=== PATIENT | female | born 2005 | race African-American/Black ===

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

== ENCOUNTER 2024-03-18 10:08 | Observation (INO) | payer OTHER, SELFPAY ==
[2024-03-18] VITALS (14 sets, daily range): BP systolic 92–126; BP diastolic 50–88; PULSE 65–96; RESP 14–18; TEMP 36.1–37.1; O2SAT 94–100; BMI 33.6; BMI 33.3
--- NOTE | 2024-03-18 10:18 | ED.VIS.FEGU ---
HPI HPI - Female History of Present Illness Chief Complaint: Vag Bleeding Detail of Chief Complaint: Heavy vaginal bleeding since 99 Informant: patient Pain Pain: Positive for Pelvic Pain Onset: Today Context: Sudden Onset Timing: Continuous and Waxes and wanes Quality: Positive for Cramping and Aching Location: RLQ and LLQ Current Severity: Mild Maximum Severity: Moderate Worsened by: - (Nothing specific) Relieved by: - (Nothing) Bleeding Issue: Positive for Vaginal bleeding and Passing clots; Negative for Passing tissue Onset: Month(s) (Had vaginal bleeding for 1 to 2 years worse since 99) Timing: Continuous Current Severity: Heavy (States she is passing golf ball size clots) Current pads/hr: 1 Maximum Severity: Heavy Associated Symptoms Associated Symptoms: Positive for Irregular Period; Negative for Dysuria, Frequency, Urgency, Hematuria or Missed Period Sexually: Positive for Inactive; Negative for Active Control: No control Narrative Narrative: Patient is a 18-year-old female who states she has had vaginal bleeding for 2 weeks. She states she is not sexually active. She does have history of polycystic ovarian syndrome. She does not have a qm nurse and has not seen a qm nurse in over a year. She states 010 she started having heavy vaginal bleeding. She is gone through 12 pads since 1 AM. She is states she is passing golf size clots as well. She denies urologic symptoms. She denies breast tenderness. Denies nausea or vomiting. She is presently on psychiatric meds. She does endorse orthostatic symptoms. Mother states she appears pale. Prior similar symptoms: No Recent Illness/Hospitalization: [facility] Medical History (Updated 03/18/24 @ 13:[address] Eagle Zhong MD) Polycystic ovarian disease Encounter for screening for COVID-19 Depression Home Medications ?Medication ?Instructions ?Recorded ?Last Taken ?Type norgestrel 0.3 mg-ethinyl 1 tab PO DAILY 06/29/19 Unknown History estradiol 30 mcg tablet sertraline 100 mg tablet 100 mg PO DAILY 06/29/19 Unknown History sertraline 25 mg tablet 25 mg PO DAILY 06/29/19 Unknown History azithromycin 250 mg tablet See Rx Instructions PO .COMPLEX #6 05/23/22 Unknown Rx tabs Allergy/AdvReac Type Severity Reaction Status Date / Time cefdinir (From Omnicef) Allergy Mild hives Verified 03/18/24 10:10 penicillin V Allergy Mild swelling Verified 03/18/24 10:10 in hands and red dots of feet hydrocodone Allergy HIVES Verified 03/18/24 10:10 Family History Mother Rheumatoid arthritis Other Cancer Surgical History no surgical history no surgical history Social History Smoking Status: Never smoker ROS ROS ED Constitutional Constitutional ED: Denies chills, fever(s), subjective or sweats Cardiovascular Cardiovascular: Denies chest pain or palpitations Respiratory/Chest Respiratory/Chest: Denies cough, dyspnea or dyspnea on exertion Gastrointestinal Gastrointestinal: Reports abdominal pain; Denies constipation, diarrhea, melena, nausea or vomiting Genitourinary Genitourinary ED: Denies dysuria, hematuria, urinary frequency or other Musculoskeletal Musculoskeletal: Denies arthralgias, myalgias or neck pain Integumentary Denies rash Neurologic Neurologic: Denies headache(s) Psychiatric Psychiatric: Reports depression Hematologic/Lymphatic Hematologic/Lymphatic: Denies easy bleeding or easy bruising EXAM Physical Exam Const Vital Signs: 03/18/24 10:09 03/18/24 11:18 03/18/24 12:29 Temperature 97.3 F L Temperature Source Temporal Pulse Rate 83 96 Pulse Rate [Lying] 74 Pulse Rate [Sitting (for 1 minute prior to obtaining)] 84 Pulse Rate [Standing (for 1 minute prior to obtaining)] 92 Respiratory Rate 14 18 Blood Pressure 126/88 H 101/66 Blood Pressure [Lying] 106/65 Blood Pressure [Sitting (for 1 minute prior to obtaining)] 110/77 Blood Pressure [Standing (for 1 minute prior to obtaining)] 113/69 Blood Pressure Mean 100 77 Blood Pressure Mean [Lying] 78 Blood Pressure Mean [Sitting (for 1 minute prior to obtaining)] 88 Blood Pressure Mean [Standing (for 1 minute prior to obtaining)] 83 Pulse Ox 98 100 Oxygen Delivery Method Room Air Room Air Positive well nourished and well developed; Negative for unkempt Constitutional Narrative: Patient appears pale. She does not appear well. Her BMI is 33.6. General Appearance ED: well developed; Negative for unkempt or odor of alcohol detected HEENT Reports moist mucous membranes HEENT Narrative: Head is atraumatic and normocephalic. Ears normal. Nares patent. Eyes PERRL and EOMs intact bilaterally General Eye ED: Yes pale conjunctiva; Negative for scleral icterus Neck no lymphadenopathy, supple and no JVD Resp normal respiratory effort and clear to auscultation bilaterally Cardio regular rate, regular rhythm, S1 normal heart sound, no murmurs and no JVD GI normal to inspection, nondistended, normoactive bowel sounds, soft to palpation, non-distended and no masses; Negative for non-tender Auscultation: hypoactive bowel sounds Palpation: tender LLQ and RLQ; Negative for rigid, hepatomegaly, splenomegaly or mass Narrative: Large clots were noted at the introitus. There was bright red blood noted in the vagina with large clots. This was evacuated. Patient is still actively bleeding. Patient's cervix is oblong and not consistent with history of no . Difficult to assess size of uterus due to pain. Patient complained of adnexal discomfort. There is no obvious mass or fullness noted on the right or left. Because of the amount of bleeding and reported history of bleeding for greater than a year will obtain ultrasound for further evaluation. Back/Spine no CVA tenderness Extremity normal to inspection and full ROM Neuro oriented x3 and CN's II-XII intact bilaterally Sensorium / Orientation: alert Psych Appearance: Negative for unkempt Mood & Affect: depressed Skin Skin Narrative: Patient appears fair skinned. MDM MDM MDM Narrative Medical decision making narrative: With patient endorsing orthostatic lightheadedness will obtain orthostatic vital signs. Clinically she looks anemic. CBC was obtained assess H&H. Serum test was obtained. Orders placed for pelvic exam. If patient is orthostatic positive we will administer liter of normal saline. Lab Data Attestation: I reviewed the patient's lab results. Lab results narrative: CBC is remarkable for an H&H of 6.7 and 25.5 with microcytic indices.Prior H&H was obtained on December 23, 2021 and was noted to be 9.3 and 30.4 with normal indices. June 2019 H&H was 13.2 and 40.9. Labs: Laboratory Results - last 24 hr 03/18/24 10:28 WBC 9.7 RBC 3.59 L Hgb 6.7 L Hct 25.5 L MCV 71.0 L MCH 18.7 L MCHC 26.3 L RDW Std Deviation 41.3 RDW Coeff of Marissa 16.2 H Plt Count 421 MPV 11.1 Immature Gran % (Auto) 0.400 Neut % (Auto) 56.4 Lymph % (Auto) 31.9 [place] % (Auto) 7.0 Eos % (Auto) 3.7 Baso % (Auto) 0.6 Absolute Neuts (auto) 5.5 Absolute Lymphs (auto) 3.08 Nucleated RBC % 0 Serum , Qual NEGATIVE Radiography Diagnostic Testing: Clinical Impression(s) from Imaging Studies Transvaginal US 03/18/24 11:33 IMPRESSION: 1. Heterogeneous endometrium with mild complex fluid which may represent blood. 2. Nabothian cysts in the cervix. 3. Otherwise unremarkable examination. Electronically Signed: Haseeb Sanchez MD at 12:33 EDT , Management Discussion w/another healthcare provider: Lan Analyst (Case discussed with Dr. Thania Manning. Patient to be admitted to her service.) Treatment and Re-Evaluation Narrative: Patient was typed and screened. Patient was made NPO. Discharge Plan Triage Chief Complaint: Vag Bleeding ED Provider: Eagle Zhong Dx/Rx/DC Orders Clinical Impression: Abnormal uterine and vaginal bleeding, unspecified, Polycystic ovarian disease, Signs and symptoms of anemia, Symptomatic anemia Prescriptions: No Action azithromycin 250 mg tablet See Rx Instructions PO .COMPLEX Qty: 6 0RF Rx Instructions: take 500 mg today (day 1), then 250 mg for 4 days (days 2-5) PO norgestrel-ethinyl estradiol 0 tablet 1 tab PO DAILY sertraline 100 MG tablet 100 mg PO DAILY sertraline 25 MG tablet 25 mg PO DAILY Primary Care Provider: Randell Bellamy Referrals: Shanda Reynolds MD [Non-Staff] - Print Language: Azeri Disposition Disposition: Acute Care [facility]
--- NOTE | 2024-03-18 10:30 | ED.RN ---
assisted to bathroom lightheaded. passed softball size clot with bleeding. bled through pad, and clothing. assisted with cleaning up and walking back to room
[2024-03-18 10:54] LABS: Absolute Lymphocyte Count 3.08 X10^3/uL (0.83-4.51); Absolute Neutrophil Count 5.5 X10^3/uL (2.0-7.7); Basophil# 0.06 X10^3/uL; Basophil% 0.6 % (0-1); Eosinophil# 0.36 X10^3/uL; Eosinophils% 3.7 % (0-5); Hematocrit 25.5 % (37-47); Hemoglobin 6.7 g/dL (12.0-15.0); Lymphocyte # 3.08 X10^3/ul (0.83-4.51); Lymphocyte % 31.9 % (19-41); Mean Corp Hgb Conc 26.3 g/dL (32-36); Mean Corpuscular Hgb 18.7 pg (27.0-32.0); Mean Platelet Vol. 11.1 fl (6.2-12.0); Monocyte# 0.68 X10^3/uL; NRBC Flagged by Analyzer 0 % (0-5); Neutrophil # 5.45 X10^3/uL (2.7-7.7); Neutrophil % 56.4 % (47-70); Platelet Count 421 K/mm3 (150-450); RBC Distribution Width CV 16.2 % (11.6-14.6); RBC Distribution Width SD 41.3 fl (35.1-43.9); Red Blood Count 3.59 M/mm3 (4.2-5.4); White Blood Count 9.7 K/mm3 (4.4-11.0)
[2024-03-18 11:18] LABS: Internal QC Validated? YES +Cl - CLEAR BKGD; Pregnancy, Serum, hCG Quali. NEGATIVE Negative
--- NOTE | 2024-03-18 11:33 | US_ITS ---
INDICATION: Vaginal bleeding with microcytic anemia EXAMINATION: Ultrasound US Transvaginal Non-OB TECHNIQUE: Transvaginal (for optimal evaluation of the adnexa) pelvic ultrasound was performed. Grayscale, spectral waveform, and color flow Doppler evaluation of the adnexa. COMPARISON: No relevant prior comparison study available FINDINGS: UTERUS: Retroflexed. The uterus measures 7.1 x 4.4 x 3.6 cm. There is no uterine mass. There is a nabothian cyst in the cervix The endometrial stripe measures 12 mm in AP diameter . Heterogeneous with complex fluid which may represent blood. RIGHT OVARY: 4.7 x 2.6 x 2.1 cm. Non-enlarged, normal echogenicity. There is normal arterial inflow and venous outflow present in the right ovary. LEFT OVARY: 4 x 3.5 x 2.6 cm. Non-enlarged, normal echogenicity. There is normal arterial inflow and venous outflow present in the left ovary. FREE FLUID: None. US/Transvaginal Non- IMPRESSION: 1. Heterogeneous endometrium with mild complex fluid which may represent blood. 2. Nabothian cysts in the cervix. 3. Otherwise unremarkable examination. Electronically Signed: Haseeb Sanchez MD at 12:33 EDT ,
--- NOTE | 2024-03-18 13:18 | NURSING ---
MED SURG OBS CHRISTOFER VAGINAL BLEEDING, ANEMIA
[2024-03-18] MEDS: Ondansetron 4 MG/2 ML Vial IV (17:18)
[2024-03-18] MEDS: 0.9% Saline Lock 10 ML Syringe IV ×4 (17:18→23:05)
[2024-03-18] MEDS: Ibuprofen 600 MG Tablet PO (17:21)
[2024-03-18] MEDS: Lactated Ringers 1,000 ML 125 ML IV (23:05)
[2024-03-19 03:13] VITALS: BP 103/46; PULSE 73; RESP 16; TEMP 36.4; O2SAT 98
[2024-03-19] MEDS: Ibuprofen 600 MG Tablet PO ×2 (03:16→17:38)
[2024-03-19 04:01] LABS: Absolute Lymphocyte Count 5.15 X10^3/uL (0.83-4.51); Absolute Neutrophil Count 7.4 X10^3/uL (2.0-7.7); Basophil# 0.06 X10^3/uL; Basophil% 0.4 % (0-1); Eosinophil# 0.45 X10^3/uL; Eosinophils% 3.2 % (0-5); Hematocrit 25.8 % (37-47); Hemoglobin 7.6 g/dL (12.0-15.0); Lymphocyte # 5.15 X10^3/ul (0.83-4.51); Mean Corp Hgb Conc 29.5 g/dL (32-36); Mean Corpuscular Hgb 22.2 pg (27.0-32.0); Mean Corpuscular Volume 75.4 fL (81-99); Mean Platelet Vol. 11.2 fl (6.2-12.0); Monocyte# 0.78 X10^3/uL; Monocyte% 5.6 % (0-10); NRBC Flagged by Analyzer 0 % (0-5); Neutrophil # 7.44 X10^3/uL (2.7-7.7); Neutrophil % 53.4 % (47-70); POSITIVE DIFFERENTIAL YES; Platelet Count 334 K/mm3 (150-450); RBC Distribution Width CV 19.5 % (11.6-14.6); RBC Distribution Width SD 52.2 fl (35.1-43.9); Red Blood Count 3.42 M/mm3 (4.2-5.4); White Blood Count 13.9 K/mm3 (4.4-11.0)
[2024-03-19 04:07] LABS: Differential Indicated SCAN CRITERIA MET
[2024-03-19 04:29] LABS: T4 Total, Thyroxin 7.9 ug/dL (4.8-13.9); Thyroid Stim Hormone (TSH) 3.39 uIU/mL (0.358-3.74)
[2024-03-19 04:43] LABS: Anisocytosis 2+
[2024-03-19 04:44] LABS: Differential Comment SCANNED; Hypochromasia 1+; Other RBC Morphology 2+; Ovalocyte 2+; Polychromasia 1+
[2024-03-19] MEDS: Lactated Ringers 1,000 ML 125 ML IV ×2 (06:37→15:04)
[2024-03-19 07:08] LABS: Absolute Lymphocyte Count 4.38 X10^3/uL (0.83-4.51); Absolute Neutrophil Count 6.9 X10^3/uL (2.0-7.7); Basophil# 0.07 X10^3/uL; Basophil% 0.6 % (0-1); Eosinophil# 0.44 X10^3/uL; Eosinophils% 3.5 % (0-5); Hematocrit 24.6 % (37-47); Hemoglobin 7.5 g/dL (12.0-15.0); Lymphocyte # 4.38 X10^3/ul (0.83-4.51); Lymphocyte % 34.7 % (19-41); Mean Corp Hgb Conc 30.5 g/dL (32-36); Mean Corpuscular Hgb 22.9 pg (27.0-32.0); Mean Corpuscular Volume 75.2 fL (81-99); Mean Platelet Vol. 10.8 fl (6.2-12.0); Monocyte# 0.76 X10^3/uL; NRBC Flagged by Analyzer 0.4 % (0-5); Neutrophil # 6.93 X10^3/uL (2.7-7.7); Neutrophil % 54.9 % (47-70); Platelet Count 313 K/mm3 (150-450); RBC Distribution Width CV 19.2 % (11.6-14.6); RBC Distribution Width SD 51.9 fl (35.1-43.9); Red Blood Count 3.27 M/mm3 (4.2-5.4); White Blood Count 12.6 K/mm3 (4.4-11.0)
[2024-03-19 09:00] VITALS: PULSE 81; RESP 18; O2SAT 96
[2024-03-19 09:10] VITALS: BP 120/80; PULSE 81; RESP 18; TEMP 36.6; O2SAT 96
--- NOTE | 2024-03-19 09:35 | PCM.HP.BLA ---
History and Physical Date of Admission: 03/18/24 Presented to the ED with increased vaginal bleeding. Filling pads since sustainable design consultant hours. Passing clots. [place] lightheaded and dizzy. Has been constantly bleeding for the last 2 years. Not this heavy. Was diagnosed with PCOS and told her only option was BC. She has a hx of mental decompensation while taking OCPs. She does not want to do that again. Declined treatment. Has not had any additional work up for PCOS. TSH was 5.0 at age 13 but normal 2 years ago. US in ED with 12 mm endometrium and ovaries consistent with PCOS. Has a history of migraines usually brought on by stress. Does have aura. Currently treated with prozac with some success. Does not currently have a therapist. Discussed the nature of PCOS. Weight gain, insulin resistance, anovulation with irregular periods. Increased risk of DM, high cholesterol and endometrial hyperplasia. Needs to have screening for hyperinsulinemia, diabetes, high cholesterol and endometrial biopsy. Bleeding currently improved with aygestin and motrin. S/p 2 units PRBCs. Does feel better. Discussed treatment options of POPs, IUD, Metrformin if insulin resistant, weight loss of 10%. May need D&C if abnormal pathology on EMB. Assessment & Plan Assessment/Plan (1) Polycystic ovarian disease: PLAN: Needs fasting lipids, insulin, A1c, and EMB (2) Abnormal uterine and vaginal bleeding, unspecified: PLAN: tsh and t4 normal (3) Symptomatic anemia: PLAN: S/p 2 prbcs PLAN: Plan Continue Aygestin TID then BID and then daily until evaluation in office complete. Possible discharge if bleeding improved this evening.
[2024-03-19] MEDS: FLUoxetine 20 MG Capsule PO (09:47)
--- NOTE | 2024-03-19 11:50 | CASEMGMT ---
RN CM Face to Face with patient for initial transition planning/care coordination assessment. RN CM introduced self and role at [facility]. Patient lying in bed, alert and oriented, mother at bedside. Patient willing to participate in assessment and is able to answer all questions appropriately. Care providers, pharmacy, and demographics verified. PCP: Patient to get established [facility] Specialists: none Preferred Pharmacy: [facility] Insurance: [facility] Prescription Benefit: yes Living Will/HPOA: none LNOK: mother Living Arrangements: Patient lives with mother in a 2 story home. Patient is independent and able to ambulate stairs. Transportation: mother, friends DME/HHC: Patient denies DME in the home. No previous HHC or SNF Patient wishes to discharge home, denies need for home health at this time. Patient states he has no further needs or concerns at this time. CM to follow for discharge planning needs that may arise. Disposition Plan: Patient to discharge home with family support and follow-up plans in place. Josey RANDOLPH, RN, CM
[2024-03-19 14:23] VITALS: PULSE 75; O2SAT 98
[2024-03-19 15:05] VITALS: BP 129/60; PULSE 65; RESP 18; TEMP 36.6; O2SAT 100
--- NOTE | 2024-03-19 17:07 | PCM.PN.OB ---
Subjective Subjective Bleeding minimal now. Still feeling a bit lightheaded. Tolerating PO well. Discussed IV iron and possible D/C in am on Aygestin. Objective Data Objective Data Vital Signs: Vital Signs Temp Pulse Resp BP Pulse Ox O2 Del Method 98 F 65 18 129/60 H 100 Room Air 03/19/24 15:05 03/19/24 15:05 03/19/24 15:05 03/19/24 15:05 03/19/24 15:05 03/19/24 15:05 Oxygen Delivery Method Room Air Weight: 93.485 kg Body Mass Index (BMI) 33.3 Intake & Output: Intake and Output for Last 24 Hours 03/17/24 03/18/24 03/19/24 23:59 23:59 23:59 Intake Total 302 / 302 2491.67 / 2491.67 Balance 302 / 302 2491.67 / 2491.67 Lab / Micro Data 03/19/24 06:58 Labs: Laboratory Results - last 24 hr 03/18/24 13:24: Crossmatch See Detail 03/19/24 03:41: WBC 13.9 H, RBC 3.42 L, Hgb 7.6 L, Hct 25.8 L, MCV 75.4 L D, MCH 22.2 L, MCHC 29.5 L D, RDW Std Deviation 52.2 H, RDW Coeff of Marissa 19.5 H, Plt Count 334, MPV 11.2, Immature Gran % (Auto) 0.400, Neut % (Auto) 53.4, Lymph % (Auto) 37.0, [place] % (Auto) 5.6, Eos % (Auto) 3.2, Baso % (Auto) 0.4, Absolute Neuts (auto) 7.4, Absolute Lymphs (auto) 5.15 H, Nucleated RBC % 0, Differential Comment SCANNED, RBC Morphology 2+, Polychromasia 1+, Hypochromasia 1+, Anisocytosis 2+, Ovalocytes 2+, TSH 3.39, Thyroxine (T4) 7.9 03/19/24 06:58: WBC 12.6 H, RBC 3.27 L, Hgb 7.5 L, Hct 24.6 L, MCV 75.2 L, MCH 22.9 L, MCHC 30.5 L, RDW Std Deviation 51.9 H, RDW Coeff of Marissa 19.2 H, Plt Count 313, MPV 10.8, Immature Gran % (Auto) 0.300, Neut % (Auto) 54.9, Lymph % (Auto) 34.7, [place] % (Auto) 6.0, Eos % (Auto) 3.5, Baso % (Auto) 0.6, Absolute Neuts (auto) 6.9, Absolute Lymphs (auto) 4.38, Nucleated RBC % 0.4 Assessment & Plan (1) Symptomatic anemia: (2) Abnormal uterine and vaginal bleeding, unspecified: (3) Polycystic ovarian disease:
[2024-03-19] MEDS: Sodium Ferric Gluconat/Sucrose 250 MG in 0.9% Normal Saline (250mL Bag) 250 ML 135 MG IV (17:33)
--- NOTE | 2024-03-19 18:48 | NURSING ---
This RN went to see IV site as pt was complaining it was burning despite her primary RN slowed infusion down and gave a cold compress. Iv site was mildly puffy and tender. IV site taken out by Karlene BOWERS. Pt refusing to get another IV. Do I have to get poked again. PT getting tearful as she is a hard stick. This RN informed pt that she does not have to do anything she does not want to do but explained the importance of having the infusion. Pt also informed that she could get it orally. But that will make me throw up. Waiting assistant operations manager back for Dr. Manning to inform her that pt refusing her iron infusion.
[2024-03-19] MEDS: DiphenhydrAMINE 25 MG Capsule PO (19:00)
[2024-03-19 20:08] VITALS: BP 106/60; PULSE 79; RESP 16; TEMP 36.8; O2SAT 100
--- NOTE | 2024-03-19 23:22 | NURSING ---
2114 Pt refused IV Iron due to previous burning sensation when medication was first given. This nurse provided education on the benefits of pt getting IV Iron and some measures that can be done to help with the discomfort. After this nurse prompted for more information, pt stated she got swelling in addition to the burning sensation with warmth and felt it was best to not get IV Iron infusion. Pt was provided education on eating iron-rich foods within her diet and was given some examples of foods containing high iron content.
[2024-03-20 02:29] VITALS: BP 109/61; PULSE 74; RESP 16; TEMP 36.9; O2SAT 100
[2024-03-20 08:30] VITALS: BP 100/60; PULSE 69; RESP 15; TEMP 36.6; O2SAT 100
--- NOTE | 2024-03-20 09:47 | PCM.PN.OB ---
Subjective Subjective Scant bleeding. Ambulating without difficulty. Refused to continue IV iron. Reviewed need for further out patient workup and treatment for bleeding. IUD seems to be her choice at this time. Will continue with Aygestin until placement. Objective Data Objective Data Vital Signs: Vital Signs Temp Pulse Resp BP Pulse Ox O2 Del Method 98.5 F 74 16 109/61 100 Room Air 03/20/24 02:29 03/20/24 02:29 03/20/24 02:29 03/20/24 02:29 03/20/24 02:29 03/20/24 02:29 Oxygen Delivery Method Room Air Weight: 93.485 kg Body Mass Index (BMI) 33.3 Intake & Output: Intake and Output for Last 24 Hours 03/18/24 03/19/24 03/20/24 23:59 23:59 23:59 Intake Total 302 / 302 4042.42 / 4042.42 400 / 400 Balance 302 / 302 4042.42 / 4042.42 400 / 400 Lab / Micro Data 03/19/24 06:58 ROS Constitutional Constitutional: Reports fatigue Cardiovascular Cardiovascular: Denies chest pain or dyspnea Respiratory/Chest Respiratory/Chest: Denies dyspnea on exertion Gastrointestinal Gastrointestinal: Denies abdominal pain Musculoskeletal Musculoskeletal: Reports none Neurologic Neurologic: Reports none Psychiatric Psychiatric: Reports none Physical Exam Const alert, oriented x3 and no apparent distress General Appearance: cooperative and comfortable HEENT normocephalic and head/scalp atraumatic Eyes PERRL and EOMs intact bilaterally Neck full ROM Resp normal respiratory effort GI soft to palpation and non-tender Extremity normal to inspection Skin no rashes or lesions noted Neuro oriented x3 and CN's II-XII intact bilaterally Psych mental status grossly normal Assessment & Plan (1) Symptomatic anemia: (2) Abnormal uterine and vaginal bleeding, unspecified: PLAN: Plan Discharge home. Follow up in office. Continue Aygestin BID for 3 days and then daily.
[2024-03-20] MEDS: FLUoxetine 20 MG Capsule PO (09:48)
[2024-03-20] MEDS: Acetaminophen 500 MG Tablet 1000 MG PO (09:48)
--- NOTE | 2024-03-20 10:05 | PCM.DC.SUM ---
Providers Date of Admission: 03/18/24 Date of Discharge: 03/20/24 Primary Care Physician: Dr. Randell Bellamy MD Reason For Visit: VAGINAL BLEEDING Diagnosis Discharge Diagnosis (1) Symptomatic anemia: Status: Acute Code(s): D64.9 - Anemia, unspecified (2) Abnormal uterine and vaginal bleeding, unspecified: Status: Acute Code(s): N93.9 - Abnormal uterine and vaginal bleeding, unspecified Plan Discharge home. Follow up in office. Continue Aygestin BID for 3 days and then daily. Medications at Discharge Home Medications fluoxetine 20 mg capsule (Prozac) 20 mg PO DAILY 03/18/24 norethindrone acetate 5 mg tablet (Aygestin) See Rx Instructions .Route .COMPLEX #30 tabs 03/20/24 Hospital Course Operations None Procedures None Summary of Care Provided Minutes Spent on Discharge: 21 Hospital Course: Admitted through ED with significant increase in vaginal bleeding and symptomatic anemia. Received 2 units PRBCs and oral Aygestin. Bleeding did stop. IV infiltration with IV iron. Patient refused continued infusion with new IV. Physical Exam Const alert, oriented x3 and no apparent distress General Appearance: cooperative and comfortable HEENT normocephalic and head/scalp atraumatic Eyes PERRL and EOMs intact bilaterally Neck full ROM Resp normal respiratory effort GI soft to palpation and non-tender Extremity normal to inspection Skin no rashes or lesions noted Neuro oriented x3 and CN's II-XII intact bilaterally Psych mental status grossly normal Weight / BMI Weight Weight: 93.485 kg Body Mass Index (BMI) 33.3 ABG / Lab / Microbiology Data 03/19/24 06:58 D/C Instructions Discharge Diet: No restrictions Discharge Activity: Return to Normal Activity Call your doctor if you observe: Using more than 1 pad per hour Please Follow Up With: Thania Manning MD When: 1-2 week Meaningful Use Info Meaningful Use Meaningful Use Diagnoses (Choose all that apply): None applicable Ischemic Stroke Statin Dosing Therapy Reference: STATIN DOSE THERAPY REFERENCE: * Patients > 75 years receive moderate or high dose statin therapy. * Patients 75 years or YOUNGER should receive HIGH intensity statin dose unless contraindicated. You will be required to document reason for non-treatment if statin daily dose does not meet guidelines. HIGH DOSE STATIN THERAPY DAILY Atorvastatin > than or = to 40 mg Rosuvastatin > than or = to 20 mg Amlodipine + Atorvastatin > than or = to 2.5/40 mg Ezetimibe + Simvastatin 10/80 mg Simvastatin 80mg Discharge Plan Admission Admit Date/Time: 03/18/24 14:14 Primary Reason for Your Visit: Anemia and vaginal bleeding Attending Provider: Thania Manning Primary Care Provider: Randell Bellamy Discharge Orders/Prescriptions Prescriptions: New norethindrone acetate [Aygestin] 5 mg Tablet See Rx Instructions .ROUTE .COMPLEX Qty: 30 1RF Rx Instructions: 5 mg orally BID for 3 days then daily Continued fluoxetine [Prozac] 20 mg capsule 20 mg PO DAILY Referrals / Follow Up: Thania Manning MD [Med Staff - Active Staff] - Shanda Reynolds MD [Non-Staff] - Randell Bellamy MD [Primary Care Provider] - Disposition Disposition (needs filled in before D/C Order can be placed): Home, Self Care
== END 2024-03-20 10:55 | disposition home or self-care (01) | DRG 761 ==
LOC: ED 13:12 → MS3 03-20 10:05
PROVIDERS: Admitting Provider Obstetrics & Gynecology; Emergency Provider Emergency Medicine; PCP Family Medicine; Visit Provider Obstetrics & Gynecology
DX: N93.9 Abnormal uterine and vaginal bleeding, unspecified (principal); D64.9 Anemia, unspecified; F32.A Depression, unspecified; E28.2 Polycystic ovarian syndrome; Z79.899 Other long term (current) drug therapy
CPT/HCPCS: 36415; 36430; 76830; 84436; 84443; 84703; 85025; 86850; 86900; 86901; 86920; 96361; 96365; 96375; 99221; 99285; J7040; J7050; J7120; P9016; A4216; G0378; J2405; J2916

== ENCOUNTER 2024-04-11 17:45 | Observation (INO) | payer OTHER, SELFPAY ==
[2024-04-11] VITALS (9 sets, daily range): BP systolic 89–116; BP diastolic 48–77; PULSE 78–106; RESP 15–16; TEMP 36.7–37.1; O2SAT 95–100; BMI 33.3
--- NOTE | 2024-04-11 18:37 | ED.RN ---
ISSUE WITH LABELS PRINTING AND LAB SEEING ORDERS. CALLED DOWN TO THE LAB TO UPDATE CURRENT BLOOD SENT. NOTIFYING ONCOMING STAFF TO USE DOWNTIME PAPERWORK FOR LABS UNTIL CORRECTED. IT WORKING ON IT
[2024-04-11 19:20] LABS: Absolute Lymphocyte Count 3.64 X10^3/uL (0.83-4.51); Absolute Neutrophil Count 7.7 X10^3/uL (2.0-7.7); Basophil# 0.05 X10^3/uL; Basophil% 0.4 % (0-1); Eosinophil# 0.25 X10^3/uL; Hematocrit 26.5 % (37-47); Hemoglobin 7.5 g/dL (12.0-15.0); Lymphocyte # 3.64 X10^3/ul (0.83-4.51); Lymphocyte % 29.4 % (19-41); Mean Corp Hgb Conc 28.3 g/dL (32-36); Mean Corpuscular Hgb 21.9 pg (27.0-32.0); Mean Corpuscular Volume 77.5 fL (81-99); Monocyte# 0.68 X10^3/uL; Monocyte% 5.5 % (0-10); NRBC Flagged by Analyzer 0 % (0-5); Neutrophil % 62.4 % (47-70); POSITIVE COUNT YES; POSITIVE MORPHOLOGY YES; RBC Distribution Width CV 21.9 % (11.6-14.6); RBC Distribution Width SD 59.8 fl (35.1-43.9); Red Blood Count 3.42 M/mm3 (4.2-5.4); White Blood Count 12.4 K/mm3 (4.4-11.0)
[2024-04-11 19:23] LABS: Internal QC Validated? YES +Cl - CLEAR BKGD; Pregnancy, Serum, hCG Quali. NEGATIVE Negative
[2024-04-11 19:30] LABS: Anion Gap 7 (5-15); BUN 8 mg/dL (7-18); Calcium,Total 9.2 mg/dL (8.5-10.1); Chloride 113 mmol/L (98-107); Creatinine, Serum 0.89 mg/dL (0.55-1.02); EST Glomerular Filtration Rate 86 mL/min (>60); Est Glom Filt Rate - Afr Amer 104 mL/min (>60); Estimated Creatinine Clearance 116.24 ml/min; Glucose 89 mg/dL (74-106); Potassium 4.2 mmol/L (3.5-5.1); Sodium Level 140 mmol/L (136-145)
[2024-04-11 19:31] LABS: Differential Indicated SCAN CRITERIA MET
[2024-04-11 20:04] LABS: Platelet Estimate SLT INC (ADEQ)
[2024-04-11 20:05] LABS: Anisocytosis 2+; Polychromasia RARE
[2024-04-11 20:06] LABS: Ovalocyte RARE
--- NOTE | 2024-04-11 20:20 | EDS_ITS ---
HPI HPI - Female History of Present Illness Chief Complaint: Vag Bleeding Narrative Narrative: 18-year-old female with vaginal bleeding. She states has been bleeding for 3 weeks. She is currently soaking through a pad every 3 hours. Patient states she feels weak and dizzy like she did last time she was admitted for this. Patient's family states she looks pale. Patient has been on Aygestin 5 mg p.o. twice daily and this is not helping. PFSH PFSH Medical History Migraines Polycystic ovarian disease Encounter for screening for COVID-19 Depression Home Medications ?Medication ?Instructions ?Recorded ?Last Taken ?Type fluoxetine 20 mg capsule (Prozac) 20 mg PO DAILY 03/18/24 Unknown History norethindrone acetate 5 mg tablet See Rx Instructions .Route 03/20/24 Unknown Rx (Aygestin) .COMPLEX #30 tabs Allergy/AdvReac Type Severity Reaction Status Date / Time cefdinir (From Omnicef) Allergy Mild hives Verified 04/11/24 17:46 penicillin V Allergy Mild swelling Verified 04/11/24 17:46 in hands and red dots of feet hydrocodone Allergy HIVES Verified 04/11/24 17:46 Family History Mother Rheumatoid arthritis Other Cancer Social History Smoking Status: Current some day smoker tobacco type: e-cigarettes ROS ROS ED Constitutional Constitutional ED: Denies chills, fever(s) or sweats Eyes Eyes: Denies blurry vision or change in vision ENT ENT ED: Denies ear pain or sore throat Cardiovascular Cardiovascular: Denies chest pain, palpitations or racing heartbeat Respiratory/Chest Respiratory/Chest: Denies cough, dyspnea or sputum Gastrointestinal Gastrointestinal: Denies abdominal pain, constipation, diarrhea, nausea or vomiting Genitourinary Genitourinary ED: Reports other Details: Vaginal bleeding ; Denies dysuria, hematuria or urinary frequency Musculoskeletal Musculoskeletal: Denies arthralgias, myalgias or neck pain Integumentary Denies abscess, Abrasions or rash Neurologic Neurologic: Denies headache(s), paresthesias or weakness Psychiatric Psychiatric: Denies anxiety, depression, suicidal ideation or suicidal thoughts Endocrine Endocrinology: Denies polydipsia or polyuria EXAM Physical Exam Const Vital Signs: 04/11/24 17:46 Temperature 98.5 F Temperature Source Temporal Pulse Rate 101 H Respiratory Rate 16 Blood Pressure 116/61 Blood Pressure Mean 79 Pulse Ox 100 Oxygen Delivery Method Room Air Positive well nourished General Appearance ED: NAD and pallor HEENT Reports moist mucous membranes Eyes PERRL and EOMs intact bilaterally General Eye ED: Yes pale conjunctiva Resp normal respiratory effort Cardio regular rate and regular rhythm GI normal to inspection, nondistended, normoactive bowel sounds Neuro oriented x3 and CN's II-XII intact bilaterally Psych mental status grossly normal Skin General Skin Exam: pallor MDM MDM MDM Narrative Medical decision making narrative: 18-year-old female presenting with vaginal bleeding. She states she soaking through a pad every 3 hours. She has been on Aygestin and it is not helping. CBC was obtained to assess white blood cell count, hemoglobin, platelets. BMP to assess renal function, electrolytes, glucose. Patient was typed and CBC shows mild leukocytosis at 12.4. Hemoglobin 7.5. Renal function and electrolytes unremarkable. hCG negative. Patient was typed and screened. Discussed with Dr. Rockwell who recommended giving her blood and admitting her to the floor. This was discussed with the patient and she is amenable to this. Admitted in stable condition. Impression: 1. Dysfunctional uterine bleeding Lab Data Labs: Laboratory Results - last 24 hr 04/11/24 04/11/24 18:11 18:17 WBC 12.4 H RBC 3.42 L Hgb 7.5 L Hct 26.5 L MCV 77.5 L MCH 21.9 L MCHC 28.3 L RDW Std Deviation 59.8 H RDW Coeff of Marissa 21.9 H Plt Count TNP MPV 11.0 Immature Gran % (Auto) 0.300 Neut % (Auto) 62.4 Lymph % (Auto) 29.4 [place] % (Auto) 5.5 Eos % (Auto) 2.0 Baso % (Auto) 0.4 Absolute Neuts (auto) 7.7 Absolute Lymphs (auto) 3.64 Nucleated RBC % 0 Platelet Estimate SLT INC Polychromasia RARE Anisocytosis 2+ Ovalocytes RARE Sodium 140 Potassium 4.2 Chloride 113 H Carbon Dioxide 20.0 L Anion Gap 7 BUN 8 Creatinine 0.89 Estim Creat Clear Calc 116.24 Est GFR (MDRD) Af Amer 104 Est GFR (MDRD) Non-Af 86 BUN/Creatinine Ratio 9.0 L Glucose 89 Calcium 9.2 Serum , Qual NEGATIVE Blood Type O POSITIVE Antibody Screen NEGATIVE Crossmatch See Detail Discharge Plan Triage Chief Complaint: Vag Bleeding ED Provider: Fredrick Vicente Dx/Rx/DC Orders Prescriptions: No Action fluoxetine [Prozac] 20 mg capsule 20 mg PO DAILY norethindrone acetate [Aygestin] 5 mg Tablet See Rx Instructions .ROUTE .COMPLEX Qty: 30 1RF Rx Instructions: 5 mg orally BID for 3 days then daily Primary Care Provider: Thania Manning Referrals: Thania Manning MD [Primary Care Provider] - Print Language: [place]
[2024-04-11] MEDS: Acetaminophen 325 MG Tablet 650 MG PO (22:28)
[2024-04-11] MEDS: Megestrol 40 MG Tablet 80 MG PO (22:41)
[2024-04-12] VITALS (8 sets, daily range): BP systolic 97–112; BP diastolic 58–87; PULSE 60–93; RESP 16; TEMP 36.4–37.1; O2SAT 95–100; BMI 33.3
[2024-04-12] MEDS: Megestrol 40 MG Tablet 80 MG PO ×3 (04:32→21:21)
--- NOTE | 2024-04-12 05:00 | EKG12_ITS ---
Test Reason : AM EKG Blood Pressure : / mmHG Vent. Rate : 071 BPM Atrial Rate : 071 BPM P-R Int : 130 ms QRS Dur : 092 ms QT Int : 368 ms P-R-T Axes : 045 008 037 degrees QTc Int : 399 ms Normal sinus rhythm Normal ECG No previous ECGs available Confirmed by SOURAV CASEY, VANESSA ([id number]), purchasing expeditor DAVID SIMS ([id number]) on 04/15/2024 9:41:10 AM Referred By: JAD Confirmed By:NIKKI BENJAMIN MD
[2024-04-12 06:41] LABS: Absolute Lymphocyte Count 5.07 X10^3/uL (0.83-4.51); Absolute Neutrophil Count 8.4 X10^3/uL (2.0-7.7); Basophil# 0.07 X10^3/uL; Basophil% 0.5 % (0-1); Eosinophil# 0.27 X10^3/uL; Eosinophils% 1.8 % (0-5); Hematocrit 28.8 % (37-47); Hemoglobin 8.7 g/dL (12.0-15.0); Lymphocyte # 5.07 X10^3/ul (0.83-4.51); Mean Corp Hgb Conc 30.2 g/dL (32-36); Mean Corpuscular Hgb 23.5 pg (27.0-32.0); Mean Corpuscular Volume 77.8 fL (81-99); Mean Platelet Vol. 10.4 fl (6.2-12.0); Monocyte# 1.02 X10^3/uL; Monocyte% 6.8 % (0-10); NRBC Flagged by Analyzer 0 % (0-5); Neutrophil % 56.4 % (47-70); POSITIVE DIFFERENTIAL YES; POSITIVE MORPHOLOGY YES; Platelet Count 501 K/mm3 (150-450); RBC Distribution Width CV 20.3 % (11.6-14.6); RBC Distribution Width SD 57.3 fl (35.1-43.9); White Blood Count 14.9 K/mm3 (4.4-11.0)
[2024-04-12 06:53] LABS: Differential Indicated SCAN CRITERIA MET
[2024-04-12 07:09] LABS: International Normalized Ratio 0.9; Prothrombin Time (Protime)PT. 12.6 SECONDS (11.7-14.9)
[2024-04-12 07:44] LABS: Anisocytosis 2+; Differential Comment SCANNED
[2024-04-12 07:46] LABS: ALB/GLOB Ratio 0.9 RATIO (0.9-2.4); AST(SGOT) 16 U/L (15-37); Alanine Aminotransfer ALT/SGPT 19 U/L (13-56); Albumin, Serum 3.4 g/dL (3.2-5.0); Alkaline Phosphatase 73 U/L (45-117); Anion Gap 8 (5-15); BUN 8 mg/dL (7-18); BUN/Creat Ratio 11.6 RATIO (10-20); Calcium,Total 8.7 mg/dL (8.5-10.1); Chloride 110 mmol/L (98-107); Creatinine, Serum 0.69 mg/dL (0.55-1.02); EST Glomerular Filtration Rate 115 mL/min (>60); Est Glom Filt Rate - Afr Amer 139 mL/min (>60); Estimated Creatinine Clearance 149.92 ml/min; Globulin 3.6 g/dL (2.2-4.2); Glucose 99 mg/dL (74-106); Potassium 3.8 mmol/L (3.5-5.1); Sodium Level 140 mmol/L (136-145); Thyroid Stim Hormone (TSH) 4.75 uIU/mL (0.358-3.74)
--- NOTE | 2024-04-12 07:50 | PCM.HP.OB ---
HPI - General General Date of Admission: 04/11/24 Chief Complaint: heavy vaginal bleeding HPI Narrative TANGELA DUNN, is a 18 F who presents for complaints of heavy vaginal bleeding. pt reports was seen about 3 weeks ago for the same reason- got transfusion time she was in. pt reports recently started PO iron as well. pt states that years ago was on OCPs but stopped them b/c she states they stopped working as she was constantly bleeding. pt states she reports for the last two years she has been bleeding nearly daily - she reports she will occasionally PFSH [facility] Medical History (Updated 04/11/24 @ 22:22 by Gini Martin) Anxiety Acute insomnia Migraines Polycystic ovarian disease Depression Home Medications ?Medication ?Instructions ?Recorded ?Last Taken ?Type fluoxetine 20 mg capsule (Prozac) 20 mg PO DAILY 03/18/24 Unknown History norethindrone acetate 5 mg tablet See Rx Instructions .Route 03/20/24 04/11/24 Rx (Aygestin) .COMPLEX #30 tabs Allergy/AdvReac Type Severity Reaction Status Date / Time cefdinir (From Omnicef) Allergy Mild hives Verified 04/11/24 17:46 penicillin V Allergy Mild swelling Verified 04/11/24 17:46 in hands and red dots of feet hydrocodone Allergy HIVES Verified 04/11/24 17:46 Family History Mother Rheumatoid arthritis Other Cancer Social History Smoking Status: Current some day smoker tobacco type: e-cigarettes Vital Signs Vital Signs Vital Signs: 04/11/24 17:46 04/11/24 19:46 04/11/24 20:47 Temperature 98.5 F 98.1 F 98.2 F Temperature Source Temporal Oral Oral Pulse Rate 101 H 78 78 Respiratory Rate 16 16 16 Respiratory Effort Respiratory Depth Respiratory Pattern Blood Pressure 116/61 99/58 L 92/48 L Blood Pressure Mean 79 71 62 Blood Pressure Source Monitor Blood Pressure Position Supine Blood Pressure Location Right Arm Pulse Ox 100 99 100 Oxygen Delivery Method Room Air Room Air Room Air 04/11/24 21:02 04/11/24 21:45 04/11/24 22:02 Temperature 98.7 F 98.2 F Temperature Source Oral Pulse Rate 82 82 106 H Respiratory Rate 15 16 16 Respiratory Effort Respiratory Depth Respiratory Pattern Blood Pressure 89/49 L 89/49 L 110/62 Blood Pressure Mean 62 62 78 Blood Pressure Source Monitor Monitor Blood Pressure Position Supine Semi-Fowlers Blood Pressure Location Right Arm Right Arm Pulse Ox 99 99 95 Oxygen Delivery Method Room Air Room Air 04/11/24 23:00 04/11/24 23:13 04/11/24 23:30 Temperature 98.7 F 98.7 F Temperature Source Oral Oral Pulse Rate 92 84 Respiratory Rate 16 16 Respiratory Effort Normal Non-Labored Respiratory Depth Normal Respiratory Pattern Normal Blood Pressure 111/48 L 108/61 Blood Pressure Mean 69 76 Blood Pressure Source Monitor Monitor Blood Pressure Position Semi-Fowlers Sitting Blood Pressure Location Right Arm Right Arm Pulse Ox 100 100 Oxygen Delivery Method Room Air Room Air 04/11/24 23:45 04/12/24 00:45 04/12/24 01:46 Temperature 98.7 F 97.6 F L 98.7 F Temperature Source Oral Oral Oral Pulse Rate 88 93 80 Respiratory Rate 16 16 16 Respiratory Effort Respiratory Depth Respiratory Pattern Blood Pressure 115/77 110/74 109/87 H Blood Pressure Mean 89 86 94 Blood Pressure Source Monitor Monitor Monitor Blood Pressure Position Semi-Fowlers Semi-Fowlers Semi-Fowlers Blood Pressure Location Right Arm Right Arm Right Arm Pulse Ox 98 99 95 Oxygen Delivery Method Room Air Room Air Room Air 04/12/24 04:30 Temperature 98.3 F Temperature Source Oral Pulse Rate 66 Respiratory Rate 16 Respiratory Effort Respiratory Depth Respiratory Pattern Blood Pressure 104/62 Blood Pressure Mean 76 Blood Pressure Source Monitor Blood Pressure Position Semi-Fowlers Blood Pressure Location Right Arm Pulse Ox 100 Oxygen Delivery Method Room Air Weight Weight: 93.6 kg Body Mass Index (BMI) 33.3 Labs Labs Labs: Blood Type O POSITIVE Antibody Screen NEGATIVE Hct 28.8 % (37-47) L Hgb 8.7 g/dL (12.0-15.0) L
--- NOTE | 2024-04-12 07:54 | PCM.HP.BLA ---
History and Physical TANGELA DUNN, is a 18 F who presents for complaints of heavy vaginal bleeding. pt reports was seen about 3 weeks ago for the same reason- got transfusion time she was in. pt reports recently started PO iron as well. pt states that years ago was on OCPs but stopped them b/c she states they stopped working as she was constantly bleeding. pt states she reports for the last two years she has been bleeding nearly daily - she reports she will occasionally have a few days randomly where she won't have any bleeding but it is very random. she denies any history of bleeding disorders in her or her family members but states she has never had a work up to her knowledge. pt reports is not sexually active. PMH: depression, PCOS Meds: prozac PSx: denies Assessment & Plan Assessment/Plan (1) Symptomatic anemia: (2) Abnormal uterine and vaginal bleeding, unspecified: (3) Polycystic ovarian disease: PLAN: Plan 18yo female with AUB, symptomatic Anemia s/p 2 U PRBC 1) pt was consented today for Hysteroscopy, D&C, possible polypectomy with insertion of Liletta IUD- she was counseled on risks/benefits and alternative. pt was counseled on risks including but not limited to infection, uterine perforation with subsequent injury to pelvic structures including bladder/bowel, vessel. pt agrees to proceed. 2) monitor vs 3) NPO status 4) will need to follow up as outpatient- hematology consult recommended
[2024-04-12] MEDS: FLUoxetine 20 MG Capsule PO (08:09)
[2024-04-12] MEDS: 0.9% Saline Lock 10 ML Syringe IV (14:04)
[2024-04-12] MEDS: Ondansetron 4 MG/2 ML Vial IV (14:04)
[2024-04-12] MEDS: Zolpidem Tartrate 5 MG Tablet PO (23:20)
[2024-04-13] VITALS (9 sets, daily range): BP systolic 94–118; BP diastolic 57–89; PULSE 62–72; RESP 16–17; TEMP 36.2–37.1; O2SAT 95–100; BMI 33.3
[2024-04-13 05:24] LABS: Hematocrit 32.7 % (37-47); Hemoglobin 9.6 g/dL (12.0-15.0); Mean Corp Hgb Conc 29.4 g/dL (32-36); Mean Corpuscular Hgb 22.9 pg (27.0-32.0); Mean Corpuscular Volume 77.9 fL (81-99); Mean Platelet Vol. 9.9 fl (6.2-12.0); POSITIVE MORPHOLOGY YES; Platelet Count 481 K/mm3 (150-450); RBC Distribution Width CV 21.4 % (11.6-14.6); RBC Distribution Width SD 59.2 fl (35.1-43.9); White Blood Count 15.3 K/mm3 (4.4-11.0)
[2024-04-13 05:53] LABS: Scan Indicated on CBC? Y/N YES- FLAGS NOTED
[2024-04-13] MEDS: Lactated Ringers 1,000 ML 15 ML IV (06:46)
--- NOTE | 2024-04-13 07:23 | DCINST_ITS ---
Discharge Instructions Diet Discharge Diet: No restrictions Activity May resume sexual activity in: 1 week Dressing / Incision Call your doctor if you observe: Fever of 101 or Higher, Inability to urinate, Using more than 1 pad per hour and Uncontrolled pain Follow Up Care Please Follow Up With: Martha Hughes MD When: 4 weeks post OP if you need an appointment please call [phone] Test Results: Test results from this visit will be discussed in further detail at your follow- up appointment, if applicable. Discharge Plan Admission Admit Date/Time: 04/11/24 20:10 Attending Provider: Tatianna Rockwell Primary Care Provider: Thania Manning Discharge Orders/Prescriptions Prescriptions: No Action fluoxetine [Prozac] 20 mg capsule 20 mg PO DAILY norethindrone acetate [Aygestin] 5 mg Tablet See Rx Instructions .ROUTE .COMPLEX Qty: 30 1RF Rx Instructions: 5 mg orally BID for 3 days then daily Referrals / Follow Up: Thania Manning MD [Primary Care Provider] -
--- NOTE | 2024-04-13 07:24 | PCM.PRE.AN2 ---
ASA Classification* ASA Classification ASA Classification: 2 Assessment & Plan Anesthesia* Anesthesia Assessment Anesthesia Assessment: Discussed sedation and/or anesthesia options, risks, benefits, and alternatives with patient/parents/legal guardian/POA. Questions invited. The patient/parents/legal guardian/POA seems to understand and agrees to proceed with anesthesia plan. Reviewed the physical assessment, medical history, allergy history and patient home medications list prior to surgery/procedure/anesthetic and documented any changes. Performed airway and anesthesia risk assessments. Anesthesia Type Anesthesia Type: MAC Anesthesia Focused Assessment* Temperature: 98.7 F Pulse Rate: 69 Blood Pressure: 94/57 Respiratory Rate: 16 Pulse Ox: 100 Airway Assessment Mouth opens: >3 cm Mallampati Score: II Focused Labs Anesthesia Preop lab: CBC WBC 15.3 K/mm3 (4.4-11.0) H 04/13/24 05:18 RBC 4.20 M/mm3 (4.2-5.4) 04/13/24 05:18 Hgb 9.6 g/dL (12.0-15.0) L 04/13/24 05:18 Hct 32.7 % (37-47) L 04/13/24 05:18 Plt Count 481 K/mm3 (150-450) H 04/13/24 05:18 CHEMISTRY Potassium 3.8 mmol/L (3.5-5.1) 04/12/24 05:47 Sodium 140 mmol/L (136-145) 04/12/24 05:47 BUN 8 mg/dL (7-18) 04/12/24 05:47 Creatinine 0.69 mg/dL (0.55-1.02) 04/12/24 05:47 Glucose 99 mg/dL (74-106) 04/12/24 05:47 TSH 4.75 uIU/mL (0.358-3.74) H 04/12/24 05:47 COAG PT 12.6 SECONDS (11.7-14.9) 04/12/24 05:47 Pre-Assessment Diagnosis/Proposed Procedure Planned Operative Procedure(s): D&c Anesthesia History 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 When Was Last Pacemaker Check QUESTION #4 FULL TEXT: You/Your Family Experience fever (hyperthermia) with Anesthesia Last Oral Intake Last Oral intake: Last Oral Intake NPO since 00:00 04/13/24 06:03 Meds taken in AM with sips of No 04/13/24 06:03 water? Meds patient instructed to take am of surgery PONV PONV - home therapy teacher: PONV - home therapy teacher Female HX of Motion Sickness HX of N/V After Surgery Non-Smoker Duration of Surgery greater than 60 minutes Number of Risk Factors PONV Score Height & Weight Height & Weight: Anesthesia: Height & Weight Height 5 ft 6 in 04/13/24 06:03 Weight: 93.6 kg 04/13/24 06:03 Body Mass Index (BMI) 33.3 04/13/24 06:03 Respiratory Assessment Respiratory Assessment - home therapy teacher: Respiratory Tract Infection Hx - home therapy teacher Hx Respiratory Tract Infection No 04/12/24 10:01 STOP Sleep Apnea STOP Sleep Apnea - home therapy teacher: STOP Sleep Apnea - home therapy teacher Hx Hypertension No 04/11/24 22:11 Hx Sleep Apnea No 04/11/24 22:11 CPAP BIPAP Do you snore loudly (louder Yes 04/11/24 22:11 than talking or can be heard Do you often feel tired/ No 04/11/24 22:11 fatigued/ sleepy during daytime? Has anyone observed you stop No 04/11/24 22:11 breathing during sleep? STOP Results Negative 04/11/24 22:11 QUESTION #5 FULL TEXT : Do you snore loudly (louder than talking or can be heard through closed doors)? 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 Specify any problems Hx of Preganancy in last 3 No 04/11/24 22:11 Months Nurse Filling Out Transfusion CSCHLATTE 04/11/24 22:11 & Questions: Date: 04/11/24 04/11/24 22:11 Time: 22:14 04/11/24 22:11 Patient unable to answer at this time (ie. confused, unrespo /Reproduction History /Reproductive History - home therapy teacher: /Reproductive Hx- home therapy teacher Hx Now No 04/12/24 10:01 Gestational Age (in weeks): EDC: Hx Hx Para Hx Section SAB No 04/12/24 10:01 Active Medications Active Medications: Current Medications Generic Name Dose Route Start Last Admin Trade Name Freq PRN Reason Stop Dose Admin Acetaminophen 650 mg 04/11/24 22:00 04/11/24 22:28 Acetaminophen 325 Mg Tablet PO 650 mg Q6H PRN PRN Administration Pain 1-10 Or Fever>100.7 Al Hydrox/Mg Hydrox/Simethicone 30 ml 04/11/24 22:00 Mag /Aluminum/Simeth Wch Udc 30 Ml Oral.Susp PO Q6H PRN PRN Gastric Burning Fluoxetine HCl 20 mg 04/12/24 10:00 04/12/24 08:09 Fluoxetine 20 Mg Capsule PO 20 mg DAILY SINDY Administration Sodium Chloride 250 mls @ 15 mls/hr 04/11/24 22:10 IV .[id number] PRN Additional IVPB Infusion Sodium Chloride 250 mls @ 15 mls/hr 04/11/24 22:10 IV .[id number] PRN Saline Flush Lactated Ringer's 1,000 mls @ 15 mls/hr 04/13/24 06:45 04/13/24 06:46 IV 15 mls/hr .Q48H SINDY Administration Megestrol Acetate 80 mg 04/11/24 22:00 04/13/24 00:25 Megestrol 40 Mg Tablet PO Not Given TID SINDY Ondansetron HCl 4 mg 04/11/24 22:00 04/12/24 14:04 Ondansetron 4 Mg/2 Ml Vial IV 4 mg Q8H PRN PRN Administration NAUSEA/VOMITING Prochlorperazine Edisylate 5 mg 04/11/24 22:00 Prochlorperazine 10 Mg/2 Ml Vial IV Q4H PRN PRN Breakthrough nausea/vomiting Sodium Chloride 2 spray 04/11/24 22:00 Sodium Chloride 0.65% 1 Dix Dix.Btl NASAL Q4H PRN PRN NASAL DRYNESS Sodium Chloride 10 - 40 ml 04/11/24 22:10 04/12/24 14:04 0.9% Saline Lock 10 Ml Syringe IV 10 ml UD PRN Administration SALINE FLUSH Zolpidem Tartrate 5 mg 04/11/24 22:00 04/12/24 23:20 Zolpidem Tartrate 5 Mg Tablet PO 5 mg QHS PRN PRN Administration INSOMNIA PFSH Medical History (Updated 04/11/24 @ 22:22 by Gini Martin) Anxiety Acute insomnia Migraines Polycystic ovarian disease Depression Home Medications ?Medication ?Instructions ?Recorded ?Last Taken ?Type fluoxetine 20 mg capsule (Prozac) 20 mg PO DAILY 03/18/24 Unknown History norethindrone acetate 5 mg tablet See Rx Instructions .Route 03/20/24 04/11/24 Rx (Aygestin) .COMPLEX #30 tabs Allergy/AdvReac Type Severity Reaction Status Date / Time cefdinir (From Omnicef) Allergy Mild hives Verified 04/11/24 17:46 penicillin V Allergy Mild swelling Verified 04/11/24 17:46 in hands and red dots of feet hydrocodone Allergy HIVES Verified 04/11/24 17:46 Family History Mother Rheumatoid arthritis Other Cancer Social History Smoking Status: Current some day smoker tobacco type: e-cigarettes Review of Systems (Anesthesia) ROS Narrative System reviewed and no additional complaints, except as documented.
--- NOTE | 2024-04-13 07:26 | OP.PCM_ITS ---
Report of Operation Date of Procedure: 04/13/24 Pre-Operative Diagnosis: AUB, symptomatic anemia- acute on chronic blood loss , PCOS Post-Operative Diagnosis: same Surgery/Procedure Performed:: Hysteroscopy, D&C Insertion of liletta IUD Description of Surgical Findings:: Thickened endometrial tissue otherwise normal appearance Surgeon: Martha Hughes Type of Anesthesia: MAC Specimen's removed: endometrial curettings Fluids Replaced: 500 Description of Procedure: Informed consent was obtained the patient was taken the operating room she was placed in supine position. She was given anesthesia. She was then placed in the [facility] where she was prepped and draped in the normal sterile fashion. At this time the weighted speculum was placed in the posterior fornix of vagina. Single-tooth tenaculum was used to gently grasp the anterior lip the cervix. At this time the uterine cavity was sounded to approximately 7cm- retroverted. Gentle dilatation was performed once adequate dilatation of the cervix was achieved the hysteroscope using normal saline as a distention medium was placed. Tubal ostia visualized. Symphion resecting device used to obtain endometrial curettings. Tissue will be sent to pathology for evaluation. Liletta IUD placed at uterine fundus and strings cut to 2.5cm. Tenaculum removed. Good hemostasis. Instrument, lap count correct x 2. Vaginal Sweep was negative. Fluid deficit 600 cc Grafts/Implants Used: Liletta IUD Procedure Start Time: 07:44 Procedure Stop Time: 07:54 Admit VTE Documentation VTE Present on Admission: Yes VTE Mechan Device Prophylaxis: SCD's VTE Pharm Prophylaxis ordered?: No Reason prophylaxis not ordered:: Procedure Not Indicated
--- NOTE | 2024-04-13 07:30 | EMB_PTH ---
PATIENT: TANGELA DUNN LOC: [facility] U#:[id number] AGE/SX: 18/F ROOM: [facility]313 RE04/11/[address]: Dr. Tatianna Rockwell MD : 2005 BED: 1 DIS: 04/13/2024 SPEC #: [id number] RECD: 04/13/24 10:42 STATUS: MARIANELA OMALLEY #: [id number] IVETTE: 04/13/24 07:[address]: Tatianna Rockwell DEPT: SURGICAL PATHOLOGY RECD BY: Kina Newby ENTERED: 04/13/24 11:43 SP TYPE: ENDOM BX/C GIOVANNA DR: Dr. Thania Manning MD Tissues: Endometrium, NOS Procedures: Surgery Specimen Level IV HEADER OPERATION: Hysteroscopy, D&C, Symphion, Liletta IUD PRE-OP DIAGNOSIS: Symptomatic anemia, abnormal uterine and vaginal bleeding, unspecified, polycystic ovarian disease TISSUE SUBMITTED: Endometrial curettings MICROSCOPIC DIAGNOSIS Endometrial curettings: Dyssynchronous endometrium consisting of weakly proliferative and weakly secretory endometrium and focal changes consistent with exogenous hormone effect. Fragments of myometrium. See comment. Ev 04/14/2024 COMMENT Clinical correlation and appropriate follow up are necessary. MICROSCOPIC DESCRIPTION Slides are reviewed. GROSS DESCRIPTION Received in fixative is one container labeled with the patient's name and designated Endometrial curettings. The specimen consists of multiple irregular fragments of red- leon soft tissue that in aggregate measure 6.0 x 3.5 x 0.2 cm. The specimen is totally submitted in its entirety in two cassettes. LEXI/ 04/13/2024 TC:5 CPT:71399
[2024-04-13] MEDS: Levonorgestrel IUD (Liletta) 1 EACH INTRA-UTER (07:52)
--- NOTE | 2024-04-13 07:57 | DS.PCM_ITS ---
Discharge Summary Date of Admission: 04/12/24 Date of Discharge: 04/13/24 Summary: Patient was admitted to [facility] on 04/12/2024 with abnormal uterine bleeding symptomatic anemia was given 2 units of blood. She was to undergo hysteroscopy D&C with insertion of an IUD likely to however due to OR time constraints surgery got pushed back until 04/13/2024. 04/13/2024 she underwent that surgery uncomplicated and discharged home in stable condition. Hemoglobin stable she will be discharged with follow-up with [facility] gynecology and will make outpatient hematology appointments. Meaningful Use Info Meaningful Use Meaningful Use Diagnoses (Choose all that apply): None applicable Ischemic Stroke Statin Dosing Therapy Reference: STATIN DOSE THERAPY REFERENCE: * Patients > 75 years receive moderate or high dose statin therapy. * Patients 75 years or YOUNGER should receive HIGH intensity statin dose unless contraindicated. You will be required to document reason for non-treatment if statin daily dose does not meet guidelines. HIGH DOSE STATIN THERAPY DAILY Atorvastatin > than or = to 40 mg Rosuvastatin > than or = to 20 mg Amlodipine + Atorvastatin > than or = to 2.5/40 mg Ezetimibe + Simvastatin 10/80 mg Simvastatin 80mg Discharge Plan Admission Admit Date/Time: 04/11/24 20:10 Attending Provider: Tatianna Rockwell Primary Care Provider: Thania Manning Discharge Orders/Prescriptions Prescriptions: No Action fluoxetine [Prozac] 20 mg capsule 20 mg PO DAILY norethindrone acetate [Aygestin] 5 mg Tablet See Rx Instructions .ROUTE .COMPLEX Qty: 30 1RF Rx Instructions: 5 mg orally BID for 3 days then daily Referrals / Follow Up: Thania Manning MD [Primary Care Provider] -
--- NOTE | 2024-04-13 08:01 | PCM.PROGNOTE ---
Subjective Subjective patient seen at bedside, doing well. Patient reports minimal bleeding today, feeling better. Objective Data Objective Data Vital Signs: Vital Signs Temp Pulse Resp BP Pulse Ox O2 Del Method 98.7 F 69 16 94/57 L 100 Room Air 04/13/24 07:25 04/13/24 07:25 04/13/24 07:25 04/13/24 07:25 04/13/24 07:25 04/13/24 06:02 Oxygen Delivery Method Room Air Weight: 93.6 kg Body Mass Index (BMI) 33.3 Intake & Output: Intake and Output for Last 24 Hours 04/11/24 04/12/24 04/13/24 23:59 23:59 23:59 Intake Total 801 / 1001 200 / 200 Output Total 50 / 50 Balance 801 / 1001 150 / 150 Lab / Micro Data 04/13/24 05:18 04/12/24 05:47 Labs: Laboratory Results - last 24 hr 04/13/24 05:18: WBC 15.3 H, RBC 4.20, Hgb 9.6 L, Hct 32.7 L, MCV 77.9 L, MCH 22.9 L, MCHC 29.4 L, RDW Std Deviation 59.2 H, RDW Coeff of Marissa 21.4 H, Plt Count 481 H, MPV 9.9 Physical Exam Const alert and oriented x3 General Appearance: cooperative HEENT normocephalic Neck General: normal visual inspection GI soft to palpation and non-distended GI Narrative: Fundus firm Extremity normal to inspection and no calf tenderness Skin no rashes or lesions noted Neuro oriented x3 and CN's II-XII intact bilaterally Psych mental status grossly normal Assessment & Plan Assessment/Plan (1) Symptomatic anemia: (2) Abnormal uterine and vaginal bleeding, unspecified: (3) Polycystic ovarian disease: PLAN: Plan HD#2 - Pt s/p D&C, hysteroscopy with insertion of liletta iud this morning in Main OR plan for Dc home today with follow in Office in 4 weeks will plan for outpatient hematology follow up hg/hct stable and improving today continue PO iron May stop PO Aygestin
--- NOTE | 2024-04-13 08:03 | DCINST_ITS ---
Discharge Instructions Diet Discharge Diet: No restrictions Activity May resume sexual activity in: 1 week Dressing / Incision Call your doctor if you observe: Fever of 101 or Higher, Inability to urinate, Using more than 1 pad per hour and Uncontrolled pain Follow Up Care Please Follow Up With: Martha Hughes MD Test Results: Test results from this visit will be discussed in further detail at your follow- up appointment, if applicable. Discharge Plan Admission Admit Date/Time: 04/11/24 20:10 Attending Provider: Tatianna Rockwell Primary Care Provider: Thania Manning Discharge Orders/Prescriptions Prescriptions: New ferrous sulfate 325 mg (65 mg iron) tablet,delayed release (DR/EC) 325 mg PO BID Qty: 60 3RF Continued fluoxetine [Prozac] 20 mg capsule 20 mg PO DAILY Discontinued norethindrone acetate [Aygestin] 5 mg Tablet See Rx Instructions .ROUTE .COMPLEX Qty: 30 1RF Rx Instructions: 5 mg orally BID for 3 days then daily Referrals / Follow Up: Thania Manning MD [Primary Care Provider] - Disposition Disposition (needs filled in before D/C Order can be placed): Home, Self Care
--- NOTE | 2024-04-13 08:09 | PCM.POST.ANE ---
Anesthesia: Postop Eval I Current Vital Signs Temperature: 97.2 F Pulse Rate: 72 Blood Pressure: 118/89 Respiratory Rate: 16 Pulse Ox: 96 Oxygen Delivery Method: Room Air Assessment Airway patent: Yes Spontaneous unlabored respirations: Yes Mental status: Awake and Calm nausea: No Vomiting: No Anesthesia Complication: No Fluid Hydration Crystalloid volume administer (ml): 500 Total IV fluid infused: 500 Progress Note Anesthesia document: Postop Eval 1 completed: Yes
--- NOTE | 2024-04-13 08:42 | NURSING ---
Recently arrived back to room at this time. Pt is groggy but mumbles. Pt mumbles she is in pain.
[2024-04-13] MEDS: Acetaminophen 325 MG Tablet 650 MG PO (09:11)
[2024-04-13] MEDS: Ondansetron 4 MG/2 ML Vial IV (09:12)
--- NOTE | 2024-04-13 09:21 | POSTOPAN2_ITS ---
Anesthesia Postop Eval I Sum Postop Eval Completion status Anesthesia document: Postop Eval 1 completed: Yes Anesthesia Postop Eval I Summary Anesthesia Postop Eval I Summary: Anesthesia Postop Eval I: Assessment Summary Airway patent Yes 04/13/24 08:11 NEWS [email or web address].[email or web address] Spontaneous unlabored Yes 04/13/24 08:11 NEWS [email or web address].[email or web address] respirations Mental status Awake,Calm 04/13/24 08:11 NEWS [email or web address].[email or web address] nausea No 04/13/24 08:11 NEWS COMMENTATOR.GDOTT Vomiting No 04/13/24 08:11 NEWS COMMENTATOR.[email or web address] Anesthesia Postop Eval I: Fluid Summary Crystalloid volume administer 500 04/13/24 08:11 NEWS COMMENTATOR.GDOTT (ml) Colloids volume administered ( ml) Blood Product volume administered (ml) Total IV fluid infused 500 04/13/24 08:11 NEWS COMMENTATOR.GDOTT Anesthesia Postop Eval I: Summary Notes Anesthesia Complication No 04/13/24 08:11 NEWS COMMENTATOR.GDOTT Anesthesia Complication Comment: Post-operative progress note Anesthesia: Postop Eval II Evaluation Mental status: Awake Pain Level: 0 nausea: No Vomiting: No
--- NOTE | 2024-04-13 09:21 | PCM.POSTANE2 ---
Anesthesia Postop Eval I Sum Postop Eval Completion status Anesthesia document: Postop Eval 1 completed: Yes Anesthesia Postop Eval I Summary Anesthesia Postop Eval I Summary: Anesthesia Postop Eval I: Assessment Summary Airway patent Yes 04/13/24 08:11 RANGE [email or web address].[email or web address] Spontaneous unlabored Yes 04/13/24 08:11 RANGE [email or web address].GDOTT respirations Mental status Awake,Calm 04/13/24 08:11 RANGE [email or web address].GDOTT nausea No 04/13/24 08:11 RANGE [email or web address].GDOTT Vomiting No 04/13/24 08:11 RANGE [email or web address].GDOTT Anesthesia Postop Eval I: Fluid Summary Crystalloid volume administer 500 04/13/24 08:11 RANGE [email or web address].GDOTT (ml) Colloids volume administered ( ml) Blood Product volume administered (ml) Total IV fluid infused 500 04/13/24 08:11 RANGE [email or web address].GDOTT Anesthesia Postop Eval I: Summary Notes Anesthesia Complication No 04/13/24 08:11 RANGE [email or web address].GDOTT Anesthesia Complication Comment: Post-operative progress note Anesthesia: Postop Eval II Evaluation Mental status: Awake Pain Level: 0 nausea: No Vomiting: No
--- NOTE | 2024-04-13 09:37 | NURSING ---
Pt has ordered breakfast. Parents in room with her.
--- NOTE | 2024-04-13 10:54 | PHA.DC.MC.R ---
Pharmacy [facility] Pharmacy Service has performed discharge medication reconciliation and counseling for this patient. 1. FERROUS SULFATE 325MG PO BID 2. STOP AYGESTIN The patient's discharge medication list was reviewed for discrepancies and discrepancies were resolved. The patient was counseled on the following discharge medications and changes in medications for homegoing were reviewed. The Reason for Use, instructions for use, and potential side effects were reviewed for all new medications. The patient's questions regarding all of their medications were answered. The patient was able to verbally demonstrate an understanding of their discharge medications. Patient counseled by pharmacy care coordinator Medications at Discharge Home Medications fluoxetine 20 mg capsule (Prozac) 20 mg PO DAILY 03/18/24 ferrous sulfate 325 mg (65 mg iron) tablet,delayed release 325 mg PO BID #60 tabs 04/13/24
[2024-04-13] MEDS: FLUoxetine 20 MG Capsule PO (11:08)
== END 2024-04-13 12:00 | disposition home or self-care (01) ==
LOC: ED 18:40 → MS3 21:41
PROVIDERS: Anesthesiology; Obstetrics & Gynecology; Admitting Provider Obstetrics & Gynecology; Emergency Provider Student in an Organized Health Care Education/Training Program; PCP Obstetrics & Gynecology; Visit Provider Obstetrics & Gynecology
PROC: 0UB98ZZ Excision of Uterus, Via Natural or Artificial Opening Endoscopic (ICD-10-PCS; CPT 58558; principal; 2024-04-13 07:15)
DX: D62 Acute posthemorrhagic anemia (principal); F17.290 Nicotine dependence, other tobacco product, uncomplicated; E28.2 Polycystic ovarian syndrome; N93.8 Other specified abnormal uterine and vaginal bleeding; Z79.899 Other long term (current) drug therapy; F32.A Depression, unspecified; F41.9 Anxiety disorder, unspecified; R06.02 Shortness of breath; G47.00 Insomnia, unspecified
CPT/HCPCS: 58558; 58300; 36415; 80048; 80053; 84443; 84703; 85025; 85027; 85610; 85730; 86850; 86900; 86901; 86920; 88305; 93005; 96374; 96376; 99221; 99283; J7030; J7120; P9016; A4216; G0378; J2405